=== PATIENT | female | born 1955 | race African-American/Black ===

== ENCOUNTER 2020-02-15 09:04 | Inpatient (IN) | payer MEDICAID, OTHER ==
[~2020-02-15] VITALS: Ht 170.2 cm; Wt 88.5 kg
[2020-02-15] MEDS ORDERED: MORPHINE SULFATE 4 MG/ML CPJ (NOT FOR IM USE) IV ONE (10:00)
[2020-02-15] MEDS ORDERED: ONDANSETRON HCL 4MG/2ML INJ IV PRN (12:45)
[2020-02-15] MEDS ORDERED: ACETAMINOPHEN 650MG SUPP PR PRN ×2 (12:45)
[2020-02-15] MEDS ORDERED: ACETAMINOPHEN 650MG/20.3ML UDC GT PRN ×2 (12:45)
[2020-02-15] MEDS ORDERED: ACETAMINOPHEN 325MG TABLET PO PRN (12:45)
[2020-02-15 13:00] VITALS: BP 115/82
[2020-02-15 14:00] VITALS: BP 115/82
[2020-02-15 15:58] LABS: CREATINE KINASE 102 IU/L (26-192)
[2020-02-15 16:00] VITALS: BP 118/84
[2020-02-15] MEDS: SODIUM CHLORIDE 0.9% 1,000 ML IV SCH (17:36)
[2020-02-15 19:34] LABS: BASOPHILS % 0.6 % (0.0-2.0); EOSINOPHILS % 0.6 % (0.0-5.0); HEMATOCRIT. 42.9 % (36.0-48.0); HEMOGLOBIN. 14.4 g/dL (12.0-16.0); LYMPHOCYTES % 15.4 % (20.0-50.0); MEAN CORPUSCULAR HEMOGLOBIN 36.2 pg (28.0-32.0); MEAN CORPUSCULAR VOLUME 108.1 fL (81.0-99.0); MEAN PLATELET VOLUME 7.6 fl (7.4-10.4); MONOCYTES % 4.3 % (2.0-8.0); NEUTROPHILS % 79.1 % (40.0-76.0); PLATELET 313 x1000/uL (130-400); RED BLOOD CELL COUNT 3.97 mill/uL (4.2-5.4)
[2020-02-15 19:45] LABS: CHLORIDE 108 mEq/L (98-107)
[2020-02-15 19:50] LABS: PROTHROMBIN TIME 10.7 sec (9.6-11.0)
[2020-02-15 19:52] LABS: LDL CHOLESTEROL 119 mg/dL (5-100)
[2020-02-15 19:53] LABS: HDL CHOLESTEROL 50 mg/dL (40-59)
[2020-02-15 19:54] LABS: CREATINE KINASE 86 IU/L (26-192)
[2020-02-15 20:00] VITALS: BP 120/79
[2020-02-16] VITALS: BP 121/72
[2020-02-16 01:16] LABS: CREATINE KINASE 74 IU/L (26-192)
[2020-02-16] MEDS: ACETAMINOPHEN 325MG TABLET PO PRN ×2 (01:30→06:26)
[2020-02-16] MEDS: SODIUM CHLORIDE 0.9% 1,000 ML IV SCH (01:30)
[2020-02-16 04:00] VITALS: BP 140/71
[2020-02-16 06:16] LABS: BASOPHILS % 1.1 % (0.0-2.0); EOSINOPHILS % 2.6 % (0.0-5.0); HEMATOCRIT. 40.3 % (36.0-48.0); HEMOGLOBIN. 13.7 g/dL (12.0-16.0); MEAN CORPUSCULAR HEMOGLOBIN 36.8 pg (28.0-32.0); MEAN CORPUSCULAR VOLUME 108.1 fL (81.0-99.0); MONOCYTES % 7.2 % (2.0-8.0); NEUTROPHILS % 60.1 % (40.0-76.0); PLATELET 292 x1000/uL (130-400); RED BLOOD CELL COUNT 3.73 mill/uL (4.2-5.4)
[2020-02-16 06:42] LABS: CHLORIDE 110 mEq/L (98-107)
[2020-02-16 06:51] LABS: LDL CHOLESTEROL 105 mg/dL (5-100)
[2020-02-16 06:52] LABS: HDL CHOLESTEROL 44 mg/dL (40-59)
[2020-02-16 07:00] LABS: CLARITY URINE HAZY (CLEAR); COLOR URINE DK YELLOW (YELLOW); KETONES URINE TRACE (NEGATIVE); LEUKOCYTE ESTERASE URINE NEGATIVE (NEGATIVE); NITRITE URINE NEGATIVE (NEGATIVE); OCCULT BLOOD URINE NEGATIVE (NEGATIVE); PROTEIN URINE TRACE (NEGATIVE); SPECIFIC GRAVITY URINE 1.034 (1.005-1.030)
[2020-02-16 07:16] LABS: *AMPHETAMINES SCREEN URINE NEGATIVE (NEGATIVE); *BARBITURATES SCREEN URINE NEGATIVE (NEGATIVE); *BENZODIAZEPINES SCREEN URINE NEGATIVE (NEGATIVE); *COCAINE SCREEN URINE PRESUMTIVE POSITIVE (NEGATIVE)
[2020-02-16 07:17] LABS: CANNABINOID URINE SCREEN NEGATIVE (NEGATIVE); METHADONE URINE SCREEN NEGATIVE (NEGATIVE); OPIATES URINE SCREEN PRESUMTIVE POSITIVE (NEGATIVE); PHENCYCLIDINE URINE SCREEN PRESUMTIVE POSITIVE (NEGATIVE)
[2020-02-16 08:00] VITALS: BP 125/73
[2020-02-16] MEDS ORDERED: MULTIVITAMINS,THER W-MINERALS TABLET PO SCH (09:00)
[2020-02-16] MEDS ORDERED: THIAMINE HCL 100MG TABLET PO SCH (09:00)
[2020-02-16 12:00] VITALS: BP 137/87
[2020-02-16] MEDS ORDERED: POTASSIUM CHLORIDE 20MEQ TABLET SR PO NR (15:30)
[2020-02-16 16:12] VITALS: BP 137/87
== END 2020-02-16 17:27 | disposition home or self-care (01) | DRG 58 ==
LOC: ER 09:23 → EDBD 09:23 → 6EST 11:45 → EDBEDREQTM 11:46 → EDBEDREQ 11:46 → ENRESERV 12:47
PROVIDERS: ADMIT Family Medicine; ATTEND Family Medicine
DX: R26.9 Unspecified abnormalities of gait and mobility (principal); W19.XXXA Unspecified fall, initial encounter; I95.9 Hypotension, unspecified; E86.0 Dehydration; Z68.30 Body mass index [BMI] 30.0-30.9, adult; E44.1 Mild protein-calorie malnutrition
CPT/HCPCS: 36415; 71045; 73552; 73560; 73590; 80053; 80061; 80305; 81003; 82140; 82550; 83036; 84443; 84484; 85025; 93005; 97162; 99285